=== PATIENT | female | born 1990 | race Asian ===

== ENCOUNTER 2017-09-02 07:02 | Inpatient (IN) | payer BC, OTHER ==
[~2017-09-02] VITALS: Ht 167.6 cm; Wt 88.2 kg
[2017-09-02] MEDS ORDERED: OXYTOCIN 30U/ 0.9% NaCL 500ML 500 ML IV ONE (07:11)
[2017-09-02] MEDS ORDERED: OXYTOCIN 30U/ 0.9% NaCL 500ML 500 ML IV PRN (07:11)
[2017-09-02] MEDS ORDERED: AMPICILLIN 2 GM in SODIUM CHLORIDE 0.9% 100 ML IVPB STA (07:11)
[2017-09-02] MEDS ORDERED: OXYTOCIN 30U/ 0.9% NaCL 500ML 500 ML ONE (07:29)
[2017-09-02] MEDS ORDERED: PLEASE ENTER HEIGHT AND WEIGHT MC SCH (07:30)
[2017-09-02] MEDS ORDERED: ONDANSETRON 2MG/ML, 2ML IVPush PRN ×2 (07:30→11:00)
[2017-09-02] MEDS ORDERED: FENTANYL PF 100 MCG/2ML IVPush PRN (07:30)
[2017-09-02] MEDS: LACTATED RINGERS 1,000 ML IV SCH ×2 (07:31→10:14)
[2017-09-02 07:43] LABS: HEMOGLOBIN 14.3 g/dL (11.7-16.4)
[2017-09-02 08:06] VITALS: BP 130/79
[2017-09-02] MEDS ORDERED: PREN1TAB60 PO (08:06)
[2017-09-02] MEDS ORDERED: NEWBORN KIT ONE (08:30)
[2017-09-02] MEDS ORDERED: FENTANYL PF 100 MCG/2ML ONE ×3 (09:59→13:06)
[2017-09-02] MEDS ORDERED: BUPIVACAINE 0.25% ONE ×3 (10:00→13:07)
[2017-09-02] MEDS ORDERED: FENTANYL/BUPIV./NS/PF 250 ML EPIDCONT ONE ×2 (10:00→10:03)
[2017-09-02] MEDS ORDERED: LIDOCAINE/PF 1.5%-EPI 1:200K, 30ML ONE (10:03)
[2017-09-02] MEDS ORDERED: LACTATED RINGERS 1,000 ML IVBOLUS PRN (11:00)
[2017-09-02] MEDS ORDERED: EPHEDRINE 50 MG/ML, 1ML IVPush PRN (11:00)
[2017-09-02] MEDS ORDERED: LACTATED RINGERS 1,000 ML IV SCH (11:00)
[2017-09-02] MEDS ORDERED: FENTANYL/BUPIV./NS/PF 250 ML EPIDCONT SCH (11:00)
[2017-09-02] MEDS ORDERED: AMPICILLIN 1 GM in SODIUM CHLORIDE 0.9% 50 ML IVPB SCH (11:30)
[2017-09-02] MEDS ORDERED: EPHEDRINE 50 MG/ML, 1ML ONE (13:39)
[2017-09-02] MEDS: OXYTOCIN 30U/ 0.9% NaCL 500ML 500 ML IV SCH (15:55)
[2017-09-02] MEDS ORDERED: MISOPROSTOL 200 MCG TABLET ONE (15:55)
[2017-09-02] MEDS ORDERED: DOCUSATE 100 MG CAPSULE PO PRN (16:00)
[2017-09-02] MEDS ORDERED: OXYcodone/APAP 5/325MG TABLET PO PRN (16:00)
[2017-09-02] MEDS ORDERED: MISOPROSTOL 200 MCG TABLET PO PRN (16:00)
[2017-09-02] MEDS ORDERED: ONDANSETRON 2MG/ML, 2ML IV PRN (16:00)
[2017-09-02] MEDS ORDERED: ACETAMINOPHEN 325 MG TABLET PO PRN (16:00)
[2017-09-02] MEDS ORDERED: MISOPROSTOL 200 MCG TABLET PR ONE (16:00)
[2017-09-02 19:40] VITALS: BP 132/80
[2017-09-02] MEDS ORDERED: DIPH,PERTUSS(ACELL),TET VAC/PF NC IM-VACC ONE (20:30)
[2017-09-03 00:44] LABS: HEMOGLOBIN 12.8 g/dL (11.7-16.4); WHITE BLOOD COUNT 14.5 x10^3/uL (3.4-10)
[2017-09-03] MEDS: IBUPROFEN 600 MG TABLET PO PRN ×3 (01:34→15:16)
[2017-09-03] MEDS: OXYTOCIN 30U/ 0.9% NaCL 500ML 500 ML IV SCH ×2 (01:55→11:55)
[2017-09-03 06:50] VITALS: BP 129/83
[2017-09-03] MEDS ORDERED: PRENATAL VIT/IRON/FA 1 EACH TABLET ONE (06:56)
[2017-09-03] MEDS ORDERED: PRENATAL VIT/IRON/FA 1 EACH TABLET PO SCH (09:00)
[2017-09-03] MEDS ORDERED: IBUP-1222 PO (09:23)
[2017-09-03] MEDS ORDERED: OXYC-302 PO (09:23)
[2017-09-03] MEDS: OXYcodone IR 5MG TABLET PO PRN ×2 (10:37→15:19)
== END 2017-09-03 17:43 | disposition home or self-care (01) | DRG 775 ==
LOC: LDIP 07:02 → 2NW 17:40
PROVIDERS: ADMIT Obstetrics & Gynecology; ATTEND Obstetrics & Gynecology
PROC: 10E0XZZ Delivery of Products of Conception, External Approach (ICD-10-PCS; principal; 2017-09-02)
PROC: 00HU33Z Insertion of Infusion Device into Spinal Canal, Percutaneous Approach (ICD-10-PCS; 2017-09-02)
DX: O80 Encounter for full-term uncomplicated delivery (principal); Z37.0 Single live birth
CPT/HCPCS: 36415; 85025; 86850; 86900; 90715; J0290; J3010; J3490; J2590; J7120

== ENCOUNTER 2019-07-17 14:50 | Emergency (ER) | payer BC ==
[~2019-07-17] VITALS: Ht 167.6 cm; Wt 70.7 kg
[2019-07-17 18:25] VITALS: BP 118/74
== END 2019-07-17 18:28 | disposition home or self-care (01) ==
LOC: ED 15:42
DX: R04.0 Epistaxis (principal); N93.9 Abnormal uterine and vaginal bleeding, unspecified
CPT/HCPCS: 30901; 36415; 80053; 84703; 85025; 85610; 99284; J3490